=== PATIENT | female | born 1995 | race Hispanic/Latino ===

== ENCOUNTER 2021-11-14 19:49 | Emergency (ER) | payer MEDICAID ==
--- NOTE | 2021-11-14 21:09 | Emergency Department Report ---
History of Present Illness - General Chief Complaint: Overdose Stated Complaint: OVERDOSE Time Seen by Provider: 11/14/21 21:06 Source: EMS Mode of arrival: Stretcher Limitations: Altered Mental Status - History of Present Illness Initial Comments: Chief complaint: Heroin overdose HPI: This is a young female who [place] from a local [place]. Unknown si gnificant history. Persons in the hospital room stated that she used heroin. She was unresponsive. Became more responsive with 4 mg of Narcan. Patient is somnolent at this time. Complaint: accidental overdose -: This evening How Overdose Was Discovered: family/friend present Treatments Prior to Arrival: narcan - Related Data Allergies Allergy/AdvReac Type Severity Reaction Status Date / Time Sulfa (Sulfonamide AdvReac Hives Verified 11/15/21 03:39 Antibiotics) ED Review of Systems ROS: Stated complaint: OVERDOSE Other details as noted in HPI Comment: Unobtainable due to pts medical conditions (Altered mental status) ED Past Medical Hx - Past Medical History Previous Medical History?: No - Surgical History Past Surgical History?: No - Social History Smoking Status: Unknown if ever smoked Substance Use Type: Other (Friends at the scene reported heroin use) ED Physical Exam - General Limitations: Altered Mental Status General appearance: in no apparent distress, lethargic, other (Arousable nonverbal will make eye contact with stimulation protecting airway) - Head Head exam: Present: atraumatic, normocephalic - Eye Eye exam: Present: normal appearance - ENT ENT exam: Present: mucous membranes moist - Neck Neck exam: Present: normal inspection, full ROM - Respiratory Respiratory exam: Present: normal lung sounds bilaterally. Absent: respiratory distress, wheezes, rales, rhonchi - Cardiovascular Cardiovascular Exam: Present: regular rate, normal rhythm, normal heart sounds. Absent: systolic murmur, diastolic murmur, rubs, gallop - GI/Abdominal GI/Abdominal exam: Present: soft, normal bowel sounds. Absent: distended, tenderness, guarding, rebound - Extremities Exam Extremities exam: Present: normal inspection - Neurological Exam Neurological exam: Present: altered, other (Nonverbal lethargic) - Psychiatric Psychiatric exam: Present: normal affect, normal mood - Skin Skin exam: Present: warm, dry, intact, normal color. Absent: rash ED Course Vital Signs 11/14/21 11/14/21 11/14/21 20:13 20:14 20:15 Pulse Rate 100 H 107 H Respiratory 22 11 L 10 L Rate Blood Pressure O2 Sat by Pulse 100 100 98 Oximetry 11/14/21 11/14/21 11/14/21 20:30 20:45 21:00 Pulse Rate 94 H 100 H 95 H Respiratory 10 L 9 L 8 L Rate Blood Pressure 115/78 102/65 102/65 O2 Sat by Pulse 100 100 Oximetry 11/14/21 11/14/21 11/14/21 21:15 21:30 21:45 Pulse Rate 103 H 76 90 Respiratory 9 L 9 L 11 L Rate Blood Pressure 95/60 95/60 115/77 O2 Sat by Pulse 100 100 99 Oximetry 11/14/21 11/14/21 11/14/21 22:00 22:15 22:30 Pulse Rate 75 95 H 90 Respiratory 11 L 11 L 10 L Rate Blood Pressure 115/77 106/69 106/69 O2 Sat by Pulse 100 99 99 Oximetry 11/14/21 11/14/21 11/14/21 22:45 23:00 23:15 Pulse Rate 83 86 88 Respiratory 15 10 L 9 L Rate Blood Pressure 105/71 105/71 105/65 O2 Sat by Pulse 98 97 98 Oximetry 11/14/21 11/14/21 11/15/21 23:30 23:45 00:00 Pulse Rate 84 82 81 Respiratory 11 L 10 L 16 Rate Blood Pressure 105/65 101/70 102/66 O2 Sat by Pulse 98 99 Oximetry 11/15/21 11/15/21 11/15/21 00:16 00:30 00:46 Pulse Rate 72 82 88 Respiratory 9 L 14 14 Rate Blood Pressure 99/57 107/61 95/64 O2 Sat by Pulse 98 97 98 Oximetry 11/15/21 11/15/21 11/15/21 01:00 01:16 01:30 Pulse Rate 79 80 86 Respiratory 14 13 15 Rate Blood Pressure 107/59 104/69 113/66 O2 Sat by Pulse 97 97 99 Oximetry 11/15/21 11/15/21 11/15/21 01:46 02:00 02:16 Pulse Rate 84 85 91 H Respiratory 14 11 L 20 Rate Blood Pressure 105/70 110/72 117/69 O2 Sat by Pulse 99 98 99 Oximetry 11/15/21 11/15/21 11/15/21 02:30 02:46 03:00 Pulse Rate 77 83 82 Respiratory 10 L 9 L 9 L Rate Blood Pressure 114/71 95/64 101/66 O2 Sat by Pulse 98 98 98 Oximetry 11/15/21 03:16 Pulse Rate 88 Respiratory 9 L Rate Blood Pressure 98/63 O2 Sat by Pulse 98 Oximetry - Reevaluation(s) Reevaluation #1: 11/14/21 21:09 Stable vital signs, oxygen saturation 100% on room air. Reevaluation #2: 11/14/21 22:55 I reexamined patient. Stable vital signs. Oxygen saturation 100% with nasal cannula. Respiration 12 breaths/min. Normal heart rate. Normal blood pressure. Reevaluation #3: 11/15/21 01:09 I reevaluated patient. Patient is easily arousable. She answers limited questions. She denies pain or discomfort. She is still drowsy. ED Medical Decision Making - Lab Data Result diagrams: 11/14/21 21:16 11/14/21 21:16 - Medical Decision Making Heroin overdose: Required 4 mg of Narcan prior to arrival. She was monitored in emergency department for 8 hours. Av is now alert. She is GCS 15. She is pain-free. She is ambulatory. She is lucid. She is currently speaking with her mother on the phone. Her family will pick her up shortly. CBC mild leukocytosis suggestive of the demarginalization sympathetic response. Chemistry within normal limits, hCG negative salicylates and acetaminophen unremarkable. Critical Care Time: Yes Critical care time in (mins) excluding proc time.: 40 Critical care attestation.: If time is entered above; I have spent that time in minutes in the direct care of this critically ill patient, excluding procedure time. 40 minutes of critical care time excluding procedures were used in the care of the patient. I came immediately to the bedside upon my arrival. I obtained history from nursing staff members. I discussed treatment plan with the nursing team members. I reviewed electronic record. Patient required multiple interventions and reassessments. I was concerned for imminent airway compromise. ED Disposition Clinical Impression: Accidental heroin overdose Disposition: 01 HOME / SELF CARE / HOMELESS Is pt being admited?: No Does the pt Need Aspirin: No Condition: Stable Instructions: Opioid Overdose Referrals: GABRIELA ELENA MD [Staff Physician] - 3-5 Days
[2021-11-14 21:29] LABS: Basophils # (Auto) 0.1 K/mm3 (0.0-0.1); Basophils % (Auto) 0.4 % (0.0-1.8); Eosinophils # (Auto) 0.1 K/mm3 (0.0-0.4); Eosinophils % (Auto) 1.1 % (0.0-4.3); Hematocrit 43.8 % (30.3-42.9); Hemoglobin 14.6 gm/dl (10.1-14.3); Lymphocytes # (Auto) 1.9 K/mm3 (1.2-5.4); Lymphocytes % (Auto) 13.8 % (13.4-35.0); Mean Corpuscular HGB Conc 33 % (30-34); Mean Corpuscular Volume 88 fl (79-97); Monocytes % (Auto) 7.7 % (0.0-7.3); Platelet Count 286 K/mm3 (140-440); Red Blood Count 4.98 M/mm3 (3.65-5.03); Red Cell Distribution Width 13.3 % (13.2-15.2)
[2021-11-14 21:46] LABS: BUN/Creatinine Ratio 9; Blood Urea Nitrogen 7 mg/dL (7-17); Calcium 9.2 mg/dL (8.4-10.2); Hemolysis Index 8
[2021-11-15 03:28] VITALS: BP 98/63
[2021-11-15 03:58] LABS: Bilirubin,Urine NEG (Negative); Blood,Urine LG (Negative); Color,Urine Amber (Yellow); RBC,Urine < 1.0 /HPF (0.0-6.0); Urobilinogen,Urine < 2.0 mg/dL (<2.0)
[2021-11-15 04:06] LABS: Amphetamine Screen,Urine PRESUMPTIVE POSITIVE; Benzodiazepines Screen,Urine PRESUMPTIVE POSITIVE; Cannabinoid Screen,Urine PRESUMPTIVE NEGATIVE; Cocaine Screen,Urine PRESUMPTIVE POSITIVE; Methadone Screen,Urine PRESUMPTIVE NEGATIVE; Opiate Screen,Urine PRESUMPTIVE NEGATIVE
[2021-11-15 04:12] LABS: WBC,Urine < 1.0 /HPF (0.0-6.0)
== END 2021-11-15 04:42 | disposition home or self-care (01) ==
LOC: EDBD 19:49 → ED 19:49
DX: T40.1X1A Poisoning by heroin, accidental (unintentional), initial encounter (principal); Y92.89 Other specified places as the place of occurrence of the external cause; Z88.2 Allergy status to sulfonamides
CPT/HCPCS: 36415; 80048; 80307; 80320; 81001; 84703; 85025; 99284; G0480